=== PATIENT | male | born 1990 | race Caucasian/White ===

== ENCOUNTER 2019-09-27 13:06 | Emergency (ER) | payer BC, SELFPAY ==
[~2019-09-27] VITALS: Ht 167.6 cm; Wt 62.7 kg
[2019-09-27] MEDS ORDERED: PEPC40TA12 (13:16)
[2019-09-27] MEDS ORDERED: CARA1TAB6 (13:16)
[2019-09-27] MEDS ORDERED: GI COCKTAIL 50ML BTL(HYOSCYAMINE/MAALOX/LIDOCAINE VISCOUS)(1:3:1) PO ONE (14:00)
[2019-09-27 14:24] LABS: BASO % 0.4 % (0.0-1.0); EOS # 0.4 10^3/uL (0.0-0.5); EOS % 3.5 % (0.0-3.0); HEMATOCRIT 46.5 % (42.0-52.0); HEMOGLOBIN 16.1 g/dl (13.5-17.5); LYMPH # 2.9 10^3/uL (1.5-5.0); LYMPH % 25.4 % (24.0-44.0); MEAN CORPUSCULAR HEMOGLOBIN 30.4 pg (27.0-33.0); MEAN CORPUSCULAR HGB CONC 34.6 g/dl (32.0-36.5); MEAN CORPUSCULAR VOLUME 87.9 fl (80.0-96.0); MONO # 0.7 10^3/uL (0.0-0.8); MONO % 6.5 % (0.0-5.0); NEUTROPHILS # 7.2 10^3/uL (1.5-8.5); NEUTROPHILS % 63.9 % (36.0-66.0); PLATELET COUNT, AUTOMATED 201 10^3/uL (150-450); RED BLOOD COUNT 5.29 10^6/uL (4.30-6.10); WHITE BLOOD COUNT 11.3 10^3/uL (4.0-10.0)
[2019-09-27 14:43] LABS: ALBUMIN 4.2 GM/DL (3.2-5.2); ALT/SGPT 25 U/L (12-78); AMYLASE 24 U/L (25-115); BILIRUBIN,DIRECT 0.2 MG/DL (0.0-0.2); BILIRUBIN,TOTAL 0.5 MG/DL (0.2-1.0); BLOOD UREA NITROGEN 10 MG/DL (7-18); CALCIUM LEVEL 9.3 MG/DL (8.5-10.1); CARBON DIOXIDE LEVEL 28 MEQ/L (21-32); CHLORIDE LEVEL 107 MEQ/L (98-107); CREATININE FOR GFR 0.84 MG/DL (0.70-1.30); GLOMERULAR FILTRATION RATE > 60.0 (>60); GLUCOSE, FASTING 115 MG/DL (70-100); LIPASE 64 U/L (73-393); POTASSIUM SERUM 4.2 MEQ/L (3.5-5.1); SODIUM LEVEL 139 MEQ/L (136-145); TOTAL PROTEIN 7.6 GM/DL (6.4-8.2)
[2019-09-27 15:00] VITALS: BP 135/95
--- NOTE | 2019-09-27 23:25 | REP ---
CT ABDOMEN WITHOUT CONTRAST: CT abdomen is performed without the use of intravenous contrast. Sagittal and coronal reconstruction images are performed. Visualized lung bases are clear. The liver, spleen, adrenals, and pancreas are grossly unremarkable. There is a punctate calcification in the mid left kidney in the region of the collecting system. There is no hydronephrosis bilaterally. There is no abdominal aortic aneurysm. There is no adenopathy seen. There is no free air or free fluid. I see no bowel wall thickening. The visualized osseous structures are unremarkable. IMPRESSION: Punctate calcification in the mid left renal collecting system. Otherwise, negative CT abdomen. Electronically Signed by Keven Diane MD 09/28/2019 10:29 A
== END 2019-09-27 15:05 | disposition home or self-care (01) ==
LOC: M ED 13:06
DX: R10.9 Unspecified abdominal pain (principal); R11.0 Nausea; K21.9 Gastro-esophageal reflux disease without esophagitis; F17.200 Nicotine dependence, unspecified, uncomplicated; Z79.899 Other long term (current) drug therapy

== ENCOUNTER 2021-01-16 09:29 | Emergency (ER) | payer BC, OTHER ==
[~2021-01-16] VITALS: Ht 167.6 cm; Wt 61.4 kg
[~2021-01-16 09:29] MED LIST: CARA1TAB6; PEPC40TA12
[2021-01-16] MEDS ORDERED: NS 1,000 ML IV ONE (11:05)
[2021-01-16 11:55] LABS: BASO % 0.3 % (0.0-1.0); EOS # 0.2 10^3/uL (0.0-0.5); EOS % 1.7 % (0.0-3.0); HEMATOCRIT 46.6 % (42.0-52.0); HEMOGLOBIN 16.2 g/dl (13.5-17.5); LYMPH # 2.8 10^3/uL (1.5-5.0); LYMPH % 29.6 % (24.0-44.0); MEAN CORPUSCULAR HEMOGLOBIN 30.5 pg (27.0-33.0); MEAN CORPUSCULAR HGB CONC 34.8 g/dl (32.0-36.5); MEAN CORPUSCULAR VOLUME 87.8 fl (80.0-96.0); MONO # 0.7 10^3/uL (0.0-0.8); MONO % 7.2 % (2.0-8.0); NEUTROPHILS # 5.7 10^3/uL (1.5-8.5); PLATELET COUNT, AUTOMATED 201 10^3/uL (150-450); RED BLOOD COUNT 5.31 10^6/uL (4.30-6.10); WHITE BLOOD COUNT 9.4 10^3/uL (4.0-10.0)
[2021-01-16] MEDS ORDERED: KETOROLAC 30 MG/ML 1ML VIAL IV ONE (12:00)
--- NOTE | 2021-01-16 12:07 | REP ---
INDICATION: R flank pain, hematuria, h/o kidney stones COMPARISON: 09/27/2019. TECHNIQUE: CT Scan of the abdomen and pelvis was performed without intravenous contrast. Sagittal and coronal reconstruction images performed. FINDINGS: Lung bases: Unremarkable. Liver: Grossly unremarkable. Gallbladder: Unremarkable. Spleen: Grossly unremarkable. Adrenals: Normal. Pancreas: Grossly unremarkable.. Kidneys: No hydronephrosis. There is a punctate calculus in the mid left kidney. There is a possible punctate calculus in the distal right ureter. The ureters are not dilated. Small and large bowel: Grossly unremarkable. Free fluid: None. Abdominal aorta: No aneurysm. Adenopathy: None. Appendix: Not inflamed. Osseous structures: Unremarkable. Pelvis: No mass. No bladder calculus seen. IMPRESSION: Punctate calculus mid left kidney. Possible punctate calculus distal right ureter. No hydroureteronephrosis. <Electronically signed by Keven Diane > 01/16/21 [id number]
[2021-01-16 12:22] LABS: ALBUMIN 4.6 GM/DL (3.2-5.2); BILIRUBIN,DIRECT 0.2 MG/DL (0.0-0.2); BILIRUBIN,TOTAL 0.6 MG/DL (0.2-1.0); TOTAL PROTEIN 7.9 GM/DL (6.4-8.2)
[2021-01-16] MEDS ORDERED: KETO10TAB PO (12:54)
[2021-01-16] MEDS ORDERED: FLOM0.4C39 PO (12:54)
[2021-01-16 12:56] VITALS: BP 112/65
== END 2021-01-16 13:22 | disposition home or self-care (01) ==
LOC: M ED 09:29
DX: N20.2 Calculus of kidney with calculus of ureter (principal); N23 Unspecified renal colic; J45.909 Unspecified asthma, uncomplicated; Z87.19 Personal history of other diseases of the digestive system; F12.20 Cannabis dependence, uncomplicated; Z87.891 Personal history of nicotine dependence
CPT/HCPCS: 74176; 80047; 80076; 81001; 83690; 85025; 96361; 96374; 99284; J1885

== ENCOUNTER → 2024-10-20 | Outpatient (REF) | payer OTHER ==
[~2024-10-20] MED LIST changes: +KETO10TAB PO; +TAMS-18 PO
== END ==
LOC: M LAB REF 17:05
PROVIDERS: ATTEND Physician Assistant
DX: J02.9 Acute pharyngitis, unspecified (principal)